=== PATIENT | female | born 1940 | race Caucasian/White ===

== ENCOUNTER → 2016-04-15 | Outpatient (CLI) | payer MEDICARE, BC ==
[~2016-04-15] MED LIST: ATIVAN 0.5MG0.5 MG PO; FEOSOL325 MG PO; HYDROCHLOROTH12.5 MG PO; MIRALAX17 GM PO; REMERON15 M2 PO; TYLENOL325 MG PO; VASOTEC5 MG PO
== END | disposition disaster alternative care site (69) ==
LOC: GKIC 09:41
DX: R91.1 Solitary pulmonary nodule (principal); R91.8 Other nonspecific abnormal finding of lung field; D35.02 Benign neoplasm of left adrenal gland; D35.01 Benign neoplasm of right adrenal gland; R26.9 Unspecified abnormalities of gait and mobility; Z88.0 Allergy status to penicillin; Z88.2 Allergy status to sulfonamides; Z88.1 Allergy status to other antibiotic agents
CPT/HCPCS: A9552

== ENCOUNTER → 2016-04-21 | Outpatient (CLI) | payer MEDICARE, BC ==
--- NOTE | ~2016-04-21 | PUL ---
PATIENT'S NAME: GABRIELA FERNANDEZ [facility] AGE: 76 Y [address] ROOM: [place] [address] LOCATION: [facility] ADMIT DATE: 04/21/2016 Pulmonary DISCHARGE DATE: FAMILY PHYSICIAN: Tj Kohli MD ATTENDING PHYSICIAN: CHRISS MARTIN NAME OF PROCEDURE: Pulmonary Function Test DATE OF PROCEDURE: April 21, 2016 TECH: RHONDA Ryder REASON FOR EXAM: Pulmonary nodules RESULTS: 1. FVC was 2.67 liters which is 107% of predicted and normal, FEV1 was 1.92 liters which is 102% of predicted and normal, and FEV1/FVC was 72% and normal. The flow volume curve did not reveal any significant airflow limitation. After bronchodilator administration FVC increased to 2.77 liters which is a 4% increase. FEV1 increased to 1.99 liters which is a 4% increase. FEV1/FVC remained 72%. 2. DLCO was 12.7 with an adjusted DLCO of 13.2 which is 88% of predicted and normal. 3. Total lung capacity was 5.25 liters which is 120% of predicted and high, and residual volume was 2.57 liters which is 141% of predicted and high. PHYSICIAN INTERPRETATION: The patient has no airflow limitation and no significant bronchodilator response. Her diffusion capacity is normal. There is evidence of hyperinflation and air trapping. CHRISS MARTIN MD RFFrida/jose maria /[id number] dtt: 04/22/16 1133 MARIO RADU F dtd: 04/22/16 0722
== END | disposition disaster alternative care site (69) ==
LOC: GRTH 12:39
DX: R91.8 Other nonspecific abnormal finding of lung field (principal)

== ENCOUNTER → 2016-05-05 | Outpatient (CLI) | payer MEDICARE, BC ==
--- NOTE | ~2016-05-05 | ESTC ---
Cardiac Perfusion Imaging Demographics Patient Name JIM Lentz Gender Female Patient Number [id number] Race Visit Number [id number] Ethnicity Corporate ID Room Number Accession Number [id number] Height Date of 1940 Weight Age 76 year(s) BSA Referring Physician Grant MARIANO MD Interpreting Grant Yao Date of study 05/05/2016 Physician Supervising /JACQUELINEP Grant Yao NM Technologist Queta Cannon MD Ordering Physician Grant Yao Stress David Boggs MD automation engineering technician RVT Stress ECG Reading Grant Yao Nurse Miriam Sweeney Physician embedded processor Procedure Type: Nuclear Stress Test:Pharmacological, Lexiscan, Cardiolite Stress Test Procedure Start time: 05/05/2016 08:15 Indications: Pre surgical clearance. Risk Factors The patient risk factors include:former tobacco use and treated hypertension. Conclusions Summary TID (1.38). Normal perfusion. Normal EF and WM. Stress Protocols Resting ECG RSR with non specific ST-T changes. Pre-stress physical exam: Un changed. Predicted HR: 143 bpm ECG Findings No ECG changes suggestive of ischemia. Arrhythmias No rhythm abnormality. Symptoms Chest tightness. Leg heaviness. Imaging Results Applied corrections - Motion correction applied High risk findings Summed scores - LV dilatation (TID) : 1.38 - Summed stress score: 0 - Summed rest score: 2 - Summed difference score: -2 Stress ejection Ejection fraction:80 % EDV :92 ml ESV :18 ml Stroke volume :74 ml LV mass :115 gr LV size:Normal Normal LV function Imaging Protocols Rest Stress Isotope:Tc99m Sestamibi IV Isotope: Tc99m Sestamibi IV Isotope dose:10 mCi Isotope dose:29.2 mCi Date:05/05/2016 07:13 Date:05/05/2016 09:13 Technique: SPECT Technique: Gated Supine SPECT Supine Scan Time:45-60 minutes post injection Procedure Medications - Regadenoson (Lexiscan) 0.4 mg IV over 10-15 sec. I.V. 0.4 mg. Medical History Admission Medications + +------+ + +---------+ + !Name !Dosage!Times per day !Start date!Stop date!Details ! + +------+ + +---------+ + !RIGO Inhibitor (any) ! ! ! ! ! ! + +------+ + +---------+ + Admission Data Admission date: 05/05/2016 Admission Time: 06:48 Hospital Status: Outpatient. Signatures dtt: Najma Burns dtmohan: 05/05/16 0815 Physician Self Edit
== END | disposition disaster alternative care site (69) ==
LOC: GRAD 06:48
DX: R94.39 Abnormal result of other cardiovascular function study (principal)
CPT/HCPCS: A9500; J0280; J2785

== ENCOUNTER 2016-05-12 14:00 | Inpatient (IN) | payer MEDICARE, BC ==
[~2016-05-12] VITALS: Ht 157.5 cm; Wt 46.8 kg
--- NOTE | ~2016-05-12 | CON ---
PATIENT'S NAME: GABRIELA FERNANDEZ [facility] AGE: 76 Y [address] ROOM: [address] [place], [place] [address] LOCATION: GPCU ADMIT DATE: 05/17/2016 Consultation DISCHARGE DATE: FAMILY PHYSICIAN: Tj Kohli MD ATTENDING PHYSICIAN: Bob Barnes DATE OF CONSULTATION: 05/24/2016 REFERRING PHYSICIAN: Johnny Madrid MD Psychiatric Evaluation/Consultation. DATA: This is a 76-year-old female, currently admitted to [facility]. Consultation requested by Dr. Bob Barnes. DIAGNOSES: At the time of evaluation, delirium, acute hypoactive with psychotic features. RECOMMENDATIONS: After talking about the risks, benefits, side effects, the patient and who was present during the interview voiced consent, acceptance, and preference for discontinuing the current use of Zyprexa, using Risperdal 0.5 mg twice a day plus Zyprexa 5 mg at night, and discontinue also the current use of Valium and replace it for a taper of Lorazepam. I have more interaction with the Zyprexa when it comes to blood pressure, nevertheless, it is the least likely to keep the liver and delirium, so I think again the balance of recent benefits is positive. HISTORY: This nice lady ended up in the hospital recently with the surgery, and after the surgery, she is getting confused seeing things that are not there and very worried about these hallucinations. So, a psychiatric consultation was requested. I came to [facility], reviewed the electronic records, the paper records, talked to the nurse for collateral information and with the patient in the presence of her . As mentioned before, she is very cooperative. There was a concern because she is drinking frequently. Nevertheless, she said that she only drinks one glass of scotch with water 3 or 4 times a week, but never goes more than one drink a day and she says that it is not strictly every single day. She has never had previous issues with withdrawal. Has never been in detox or rehab and concurs with this idea. The patient has never seen a psychiatrist before. Never had issues with depression, anxiety, psychosis, april and hypomania, obsession or compulsion, eating disorder, post-traumatization, or gambling. SUBSTANCE USE HISTORY: [facility] 76 Y [address] ROOM: [place] [address] LOCATION: GPCU ADMIT DATE: 05/17/2016 Consultation DISCHARGE DATE: FAMILY PHYSICIAN: Tj Kohli MD ATTENDING PHYSICIAN: Bbo Barnes As mentioned before, she is a smoker, but not a heavy drinker, and not a drug user. PAST PSYCHIATRIC HISTORY: Never been in a psychiatric facility. Never been suicidal. MEDICAL HISTORY: Per history and physical. PERSONAL HISTORY: She lives with her . No legal problems. No history of being in the . HISTORY OF ABUSE: Noncontributory. The patient has never been abused physically, sexually, or psychologically. FAMILY HISTORY: Noncontributory. MENTAL STATUS EXAMINATION: This is a lady, cooperative, good hygiene, good eye contact. No psychomotor agitation or retardation. Speech is normal in motor and production. Mood is labile. Affect is labile. Thought content is relevant. The patient is denying suicidal ideation endorsing visual hallucination. No auditory hallucination. No delusional thoughts. Thought was coherent and congruent. No loosening of association. Insight and judgment seem to be limited. Memory is somewhat deficient just in the very short term, but before the start of the delirium, the memory was considered to be good. Level of alertness has changes because of moments of confusion, and intelligence is average. STRENGTHS: Intelligence. BARRIERS: Physical health. HAMMAD YUSUF MD HG/modl PATIENT'S NAME: [facility] A[facility]: 76 Y [address] ROOM: [place] [address] LOCATION: GPCU ADMIT DATE: 05/17/2016 Consultation DISCHARGE DATE: FAMILY PHYSICIAN: Tj Kohli MD ATTENDING PHYSICIAN: Bob Barnes /[id number] d: 05/24/16 1503 t: 05/25/16 0945, CONSULTATION REPORT
--- NOTE | ~2016-05-12 | LTR ---
PATIENT'S NAME: LAURA FERNANDEZ [facility] AGE: 76 Y [address] ROOM: [address] [place] [id number] LOCATION: GPCU ADMIT DATE: 05/17/2016 Letter DISCHARGE DATE: 06/03/2016 FAMILY PHYSICIAN: Tj Kohli MD ATTENDING PHYSICIAN: Bob Barnes June 03, 2016 Re: LAURA FERNANDEZ BILL To [facility] Oncology: Laura Fernandez was hospitalized on Dr. Rao Barnes's Thoracic Surgery Service on 05/17/2016. On that day, Dr. Barnes performed a mediastinoscopy with biopsy of 4R, 4L, and #7 station lymph nodes. He performed a right thoracotomy with wedge resection of right upper lobe, wedge resection of right lower lobe, and right upper lobectomy with thoracic lymphadenectomy. The pathologist identified a 2 cm mass in the upper lobe of the right lung section. This was a moderately differentiated adenocarcinoma. No pleural extension or lymphovascular invasion was noted. They also noted the presence of a 0.3 cm moderately differentiated adenocarcinoma in the wedge resection of the lower lobe of the right lung. The patient had 4R lymph nodes, 8R lymph nodes, 9R nodes, 10R lymph nodes, 11R lymph nodes, and 12R lymph nodes. No lymph nodes were involved out of the 13 lymph nodes submitted. The patient did undergo sampling of 3 N2 lymph node stations as recommended. The patient was classified as clinical stage IIIA disease. This presumed the lesion in the lower lobe of the right lung was a metastasis from the lesion in the upper lobe of the right lung. It is possible the patient had 2 separate primaries. All other things being equal, if the patient is staged as stage IIIA disease, that is moderately differentiated, their prospects for cure with this surgery are around 30% to 40%. Cisplatin containing regimens, 4 cycles given over 12 weeks, can improve cure rates by around 12%. Mrs. Fernandez's course was complicated with delirium and she was just discharged on the 16th postoperative day. The patient will see Dr. Jeter in his [facility] to weigh the pros and cons of surveillance alone versus adjuvant chemotherapy. Johnny Madrid MD PATIENT'S NAME: LAURA FERNANDEZ [facility] AGE: 76 Y [address] ROOM: [address] [place] [id number] LOCATION: GPCU ADMIT DATE: 05/17/2016 Letter DISCHARGE DATE: 06/03/2016 FAMILY PHYSICIAN: Tj Kohli MD ATTENDING PHYSICIAN: Bob Barnes/ally /[id number] CC: DO Antonio Root MD Ronald J Sheppard, MD
--- NOTE | ~2016-05-12 | DS ---
PATIENT'S NAME: GABRIELA FERNANDEZ [facility] AGE: 76 Y [address] ROOM: [address] [place], [place] [address] LOCATION: GPCU ADMIT DATE: 05/17/2016 Discharge Summary DISCHARGE DATE: 06/03/2016 FAMILY PHYSICIAN: Tj Kohli MD ATTENDING PHYSICIAN: Bob Alexandra HISTORY OF PRESENT ILLNESS: The patient is a 76-year-old, white female with a known right upper lobe mass, PET positive as well as a right lower lobe mass which is not PET positive and mediastinal adenopathy. She was seen in consultation by Dr. Alexandra as referred by Dr. Jeter. On 05/17/2016, the patient presented to the operative suite for a mediastinoscopy with biopsy of 4L and #7 station lymph nodes. Also performed was a right thoracoscopy with wedge resection of the right upper lobe, wedge resection of the right lower lobe, and right upper lobectomy with thoracic lymphadenectomy. The patient tolerated the surgery without complication. Chest tube was placed at the time of this surgical procedure. The patient was transferred to the progressive care floor on 4 weeks recuperation. Early on postoperatively, we did note that the patient was suffering from acute postoperative delirium. We did attempt to manage this with medication in time. The patient also noted to be anemic and we began Epogen and p.o. iron. Chest tube was monitored. She did have an air leak from the onset. The fluid quantities were monitored. A couple days postop, we did have to call Psychiatry to assist with patient's delirium, given the gravity of the delirium. We did suspect a component of alcohol withdrawal. Medications were adjusted and new medications were instituted. The patient's pathology returned identifying a 2 cm mass in the upper lobe of the right lung section. This was indicative of moderately differentiated adenocarcinoma with no pleural extension or lymphovascular invasion. Also noted was a 0.3 cm moderately differentiated adenocarcinoma in the wedge resection of the lower lobe of the right lung. Lymph biopsies 4R, 8R, 9R, 10R, 11R, and 12R nodes revealed no metastatic adenocarcinoma. A total of 13 lymph nodes were submitted with no findings. The patient was classified as a clinical stage IIIA. Dr. Madrid followed the patient while hospitalized. The patient will see Dr. Jeter for outpatient therapy, likely consisting of cisplatin-containing regimes. The patient did continue to have an air leak to her chest tube. She had poor p.o. intake secondary to her delirium. She also had bouts with hyponatremia for which she did have to receive saline infusions. She did have a positive UA and was started on Cipro. We did have to go ahead and place a Dobbhoff and started Jevity. This did not last long as the patient did pull out the Dobbhoff shortly thereafter. We did go ahead and order a second psychiatric consult. Again, medications were adjusted and new treatment therapy began. The patient's hospitalization was prolonged secondary to the delirium. We did PATIENT'S NAME: GABRIELA FERNANDEZ [facility] AGE: 76 Y [address] ROOM: [place] [address] LOCATION: GPCU ADMIT DATE: 05/17/2016 Discharge Summary DISCHARGE DATE: 06/03/2016 FAMILY PHYSICIAN: Tj Kohli MD ATTENDING PHYSICIAN: Bob Alexandra have a decreased in the air leak and eventually no further air leak for which a chest tube was discontinued. The patient's mentation did improve. We did work with the patient and her with regard to discharge plan, given her mentation and debilitation following the surgery. The patient and her were quite adamant that they did not want any skilled care. They did desire to go home. We did finally get them talked into allowing Home Health Care nurses come and set up medications and provide PT and OT to them. The patient was deemed medically stable and again her mentation cleared significantly. By 06/03/2016, the patient was found stable to discharge to home. DISCHARGE ORDERS: Include a diet with no restrictions. Activity levels which require no pulling, pushing, or lifting greater than 10 pounds with the right upper extremity until 06/28. The patient may shower. She should work with pulmonary rehab for reconditioning once her home health care services are discontinued. She will follow up with Dr. Kohli in 3 days. She is to follow up with Dr. Alexandra in 2 weeks. She is to see Dr. Jeter at her scheduled time in 06/10. We will also ask Home health care nurses to draw a renal panel on 06/06/2016 and fax the findings to our office. DISCHARGE MEDICATIONS: Include: 1. Enalapril 5 mg twice a day. 2. Hydrochlorothiazide 6.25 mg daily. 3. Ferrous sulfate 325 mg twice a day. 4. Ativan 0.25 mg twice a day. 5. Remeron 7.5 mg at bedtime. 6. MiraLAX 17 g daily. 7. Tylenol 650 mg q.4 hours p.r.n. The patient has been verbalized understanding of the discharge orders. The patient was discharged home with home health care services. RADHA ECHOLS APRN FOR BOB ALEXANDRA DO DLQ/modl /[id number] d: 06/17/16 0652 t: 06/17/16 1140, DISCHARGE SUMMARY
--- NOTE | ~2016-05-12 | CON ---
PATIENT'S NAME: LAURA FERNANDEZ [facility] AGE: 76 Y [address] ROOM: [address] [place], [place] [address] LOCATION: GPCU ADMIT DATE: 05/17/2016 Consultation DISCHARGE DATE: FAMILY PHYSICIAN: Tj Kohli MD ATTENDING PHYSICIAN: Bob Barnes DATE OF CONSULTATION: 05/28/2016 REFERRING PHYSICIAN: Johnny Madrid MD HISTORY OF PRESENT ILLNESS: The patient was evaluated, discussed with the treatment team. This is a followup psych consult. The patient was initially evaluated by Dr. Grande on 05/24/2012. Other medical issues are evaluated. Status post resection from stage III lung cancer. Psych input was obtained for concerns around her delirium and also having psychotic symptomatology. It was revealed that the patient was consuming scotch at home, and the presentation explained by acute alcohol withdrawal at that time. The medications have been initiated by Dr. Grande. Started on Ativan, Risperdal, and Zyprexa. However, at this time, it seems like the patient is demonstrating excessive sedation on the combination, nonverbal, and extremely sedated for the last couple of days, and psych input is sought for medication adjustment. The patient was evaluated in her room. Also, was present. Having one of the best days so far during this hospital stay. Alert and awake. Orientation was definitely better, but still not quite there. Currently, understands questions. Gave vague responses after getting her thoughts together. Could tell me that she was in the hospital, name is [facility], and approximately able to tell me the date as well. The was able to provide the information. Laura did acknowledge that she likes to drink scotch and estimated that she drinks 1 to 2 shots per night of "[employer] [place]." , on the other hand, thought that there were days that she did not consume. Per the nursing staff, seems to be coming around. Still confused. Not the most alert, but overall cooperative, calm, and definitely regaining her cognition. SOCIAL HISTORY: The couple lives in [place], [place]. She is a retired teacher. They have been for 57 years and have 3 children. Originally from the [facility]. States that she was born and raised in [place]. MENTAL STATUS EXAMINATION: Thin built, frail. Resting in her recliner. Pleasant. Humorous at times as well, joked about not wanting to see a psychiatrist. Able to understand PATIENT'S NAME: LAURA FERNANDEZ [facility] AGE: 76 Y [address] ROOM: [address] [place], [place] [address] [facility] AD[facility] DATE: 05/17/2016 Consultation DISCHARGE DATE: FAMILY PHYSICIAN: Tj Kohli MD ATTENDING PHYSICIAN: Bob Barnes questions. Response latency was definitely increased. It took a while for her to process during the interview itself, was doing a lot better toward the end. Told me this is May 2016 and thought the day was Monday. Able to tell me with some prompting that this was [facility]. Also, broadly told me about the medical issues. Talked about the scotch, the brand, and the frequency, etc. Denies any auditory or visual hallucinations. At this time, feels better, but does talk about physically being uncomfortable and also being "down in the dumps." Denies any suicidal ideations. Understands the prognosis, but remains onboard and fairly hopeful about the long-term prospect. Fairly realistic at this time. DIAGNOSES: 1. Acute delirium, resolving. Etiology multiple. 2. Status post resection (lung cancer). 3. Mood disorder, other specified. ASSESSMENT AND PLAN: At this time, we will start taper of her medications. We will discontinue the Zyprexa altogether. Cut back the Risperdal to 0.25 mg b.i.d. for 2 days, can be further tapered down to 0.25 mg at bedtime and completely discontinued upon time of discharge. Ativan will be cut back to 0.25 mg b.i.d. We will keep her on the same dosage unless that too seems too sedating for her. We will initiate on Remeron 7.5 mg at bedtime mainly to help her sleep during the night and also hopefully to promote appetite. Please call with any specific concerns. MD WAQAS COCHRAN/ally /[id number] d: 05/28/16 1148 t: 05/30/16 1227, CONSULTATION REPORT
--- NOTE | ~2016-05-12 | OR ---
PATIENT'S NAME: GABRIELA FERNANDEZ [facility] AGE: 76 Y [address] ROOM: [place] [address] [facility] ADMIT DATE: 05/17/2016 OR/Procedure Report DISCHARGE DATE: FAMILY PHYSICIAN: Tj Kohli MD ATTENDING PHYSICIAN: Bob Barnes SURGEON: Bob Barnes DO DRAMATIC AGENT: DATE OF PROCEDURE: 05/17/2016 PREOPERATIVE DIAGNOSES: 1. Mediastinal adenopathy. 2. Right upper lobe mass, PET positive. 3. Right lower lobe mass, not PET positive. POSTOPERATIVE DIAGNOSES: 1. Mediastinal adenopathy. 2. Right upper lobe mass, PET positive. 3. Right lower lobe mass, not PET positive. 4. Frozen section indicating right upper lobe mass as nix-sotit-ibed carcinoma, possibly adenocarcinoma. PROCEDURE: 1. Mediastinoscopy with biopsy of 4R, 4L, and #7 station lymph nodes. 2. Right thoracotomy with wedge resection of right upper lobe, wedge resection of right lower lobe, and right upper lobectomy with thoracic lymphadenectomy. REFERRING PHYSICIANS: 1. Dr. Montelongo. 2. Dr. Jeter. 3. Dr. Paige. BRIEF HISTORY: Ms. Fernandez is a 76-year-old white female with the above-noted diagnosis. She has been brought to the operative suite today after informed consent was obtained for her procedure. We began with the mediastinoscopy. She had been previously intubated by the Department of Anesthesiology. A 2.5 cm curvilinear incision was made approximately 1 fingerbreadth above the suprasternal notch. Dissection was carried out sharply and with electrocautery through the platysma. We identified the strap muscles and these in the midline. A small anterior jugular vein was clipped and divided. Dissection was carried out to the level of the trachea. The anterior mediastinum was entered bluntly, and then the mediastinoscope was advanced along the level of the trachea. We identified 4L, 4R, and #7 lymph nodes. The 4R lymph node was biopsied and sent for frozen and permanent sections. We performed the similar procedure at the #7 lymph node station and PATIENT'S NAME: GABRIELA FERNANDEZ [facility] AGE: 76 Y [address] ROOM: [place] [id number] [facility] ADMIT DATE: 05/17/2016 OR/Procedure Report DISCHARGE DATE: FAMILY PHYSICIAN: Tj Kohli MD ATTENDING PHYSICIAN: Bob Barnes the 4L lymph node station. Each of these came back as negative for malignancy. The electrocautery used for hemostasis. The mediastinoscope was withdrawn. Strap muscles were approximated with a single 2-0 Vicryl. The platysma was then closed with a 2-0 Vicryl and the skin with 4-0 Monocryl. Anesthesia then exchanged her single-lumen endotracheal tube for a double- lumen endotracheal tube and a central line was placed. We rolled her into a lateral decubitus position for a right thoracotomy. A thoracotomy incision was made approximately 2 fingerbreadths below the scapular tip. We entered in the fourth intercostal space. The intercostal incision was completed with electrocautery. Tuffier retractor was placed, and the intercostal incision was extended anteriorly and posteriorly. The lung was nicely decompressed. The upper lobe mass was easily identifiable and with a 75 BETHANIE stapling device, we divided the upper lobe mass and sent it in for frozen section. This did come back as [id number] carcinoma, likely adenocarcinoma. There was a small palpable mass in the left upper lobe. This was also wedged and sent for permanent section. We then performed a right upper lobectomy. The pleural attachments were freed at the hilum, and the fissure was entered identifying the right upper lobe arterial structures and with an endovascular stapling device, we divided the arterial structures to the upper lobe. We then divided the venous drainage to the upper lobe and then divided the remainder of the fissure with stapling device and then divided the bronchus. Specimen was handed off. The #10, #11, and #12 lymph nodes were resected. As noted above, station 4 and station 7 lymph nodes were sent via the mediastinoscopy, 8 and 9 lymph nodes were identified and then sent as well. Infrapulmonary ligament was divided with electrocautery. Two chest tubes were placed, each of 24- Georgian, anterior and posterior to the hilum. Inflation to the lung was given under irrigant and without evidence of bronchial stump leak. The irrigant was removed. The intercostal incision was closed with 3 interrupted figure-of- eight #1 Ethibond. Muscular layer was closed with running 0 Vicryl, fascia with 2-0 Vicryl, and skin with 4-0 Monocryl. The patient tolerated the procedure well, was extubated, and transferred to the recovery room in stable condition. DO DREAD CARR/ally /[id number] d: 05/17/169 t: 05/18/16 1044, OPERATIVE SUMMARY
[~2016-05-12 14:00] MED LIST changes: -ATIVAN 0.5MG0.5 MG PO; -FEOSOL325 MG PO; -MIRALAX17 GM PO; -REMERON15 M2 PO; -TYLENOL325 MG PO
[2016-05-17 07:15] LABS: BASOPHIL # 0.1 K/uL (0.0-0.2); BASOPHIL % 0.8 %; EOSINOPHIL # 0.1 K/uL (0.0-0.5); HEMOGLOBIN 12.8 g/dL (10.0-15.0); IMMATURE GRANULOCYTE % 0.5 %; LYMPHOCYTE # 1.7 K/uL (0.8-4.0); LYMPHOCYTE % 28.1 %; MCH 30.7 pg (27.0-34.0); MCHC 32.8 gm/dL (32.0-36.5); MCV 93.5 fl (83.0-98.0); MONOCYTE # 0.7 K/uL (0.0-1.0); MPV 9.9 fl (9.4-12.4); NEUTROPHIL # (ANC) 3.5 K/uL (1.8-7.8); NEUTROPHIL % 58.6 %; NRBC % 0 /100WBC (0-0.00); PLATELET COUNT 233 K/uL (150-450); RBC 4.17 M/uL (3.50-5.50); RDW-CV 13.2 % (11.9-14.6)
[2016-05-17 07:28] LABS: ALBUMIN 4.4 gm/dL (3.5-5.0); ANION GAP 10.4 (10.0-19.0); BLOOD UREA NITROGEN 13 mg/dL (6-24); CALCIUM 9.2 mg/dL (8.5-10.5); CHLORIDE 103 mMol/L (96-110); CO2 31 mMol/L (22-32); CREATININE 0.7 mg/dL (0.5-1.1); ESTIMATED GFR (MDRD EQUATION) > 60; PHOSPHORUS 3.4 mg/dL (2.5-4.9); POTASSIUM 4.4 mMol/L (3.7-5.1); SODIUM 140 mMol/L (135-145)
[2016-05-17 10:01] LABS: BILIRUBIN URINE NEGATIVE (NEGATIVE); BLOOD URINE 10 /UL (NEGATIVE); COLOR URINE YELLOW (YELLOW); GLUCOSE URINE NEGATIVE (NEGATIVE); KETONE URINE NEGATIVE (NEGATIVE); LEUKOCYTES URINE NEGATIVE /UL (NEGATIVE); NITRITE URINE NEGATIVE (NEGATIVE); PH URINE 6.5 (4.0-8.0); PROTEIN URINE NEGATIVE (NEGATIVE); UROBILINOGEN URINE NORMAL (NORMAL)
[2016-05-17 10:02] LABS: TURBIDITY URINE CLEAR (CLEAR)
[2016-05-17 10:17] LABS: RBC URINE 0-2 #/HPF (NEGATIVE)
[2016-05-17 10:18] LABS: WBC URINE 0-2 #/HPF (NEGATIVE)
[2016-05-17 10:19] LABS: BACTERIA URINE RARE (NEGATIVE); EPITHELIAL URINE 0-2 #/HPF (NEGATIVE)
[2016-05-17 10:20] LABS: MUCUS URINE 2+ (NEGATIVE)
--- NOTE | 2016-05-17 19:08 | NUR ---
Significant Event: SLEEPY BUT AROUSES EASILY. ORIENTED X3. RIGHT CHEST TUBES X2 INTO ONE CANISTER TO -20ML WALL SUCTION. AIR LEAK PRESENT, INTERMITTENT BUBBLING NOTED. SMALL AMOUNT OF SHADOW DRAINAGE TO CT SITE DRESSING, MARKED UPON ARRIVAL TO FLOOR. LUNGS COARSE, WORSE TO RIGHT SIDE. WEANED TO 0.5L NC, DE-SATS WHEN SLEEPING ON ROOM AIR. RIGHT IJ DUAL LUMEN CENTRAL LINE, D5 1/2 NS @ 40 ML/HR INFUSING. EPIDURAL INTACT, SMALL AMOUNT OF BLOODY DRAINAGE TO DRESSING, CONTINUES ON FENTANYL/ROPIVACAINE @ 3 ML/HR WITH 1 ML BOLUS/30 MINUTE LOCKOUT. PAIN TOLERABLE, 4/10 UPON ARRIVAL TO FLOOR. RE-EDUCATED PATIENT ON GAMING FLOOR SUPERVISOR AND ENCOURAGE HER TO PUSH BUTTON FOR PAIN. PAIN CURRENTLY A 2/10. RIGHT ARTERIAL LINE INTACT, TRANPARENT DRESSING D/I. SBP 110'S-130'S. BABB PATENT. REFUSES SIPS OF WATER, MOUTH SWABBED. VOICE HOARSE. MEDIAL NECK INCISION SITE COVERED WITH GAUZE & TRANSPARENT, C/D/I. Follow up: CONTINUE TO MONITOR CLOSELY.
--- NOTE | 2016-05-18 04:32 | NUR ---
SIGNIFICANT EVENT: A/O X 3. EPIDURAL IN PLACE DRESSING IS C/D/I PAIN CONTROLED WELL. FLOEY INTACT WILL MARGINAL OUT OF 330ML. CT HAD 440ML OUT THIS SHIFT. REPOSITIONED EVERY 2 HOURS AND NEEDED. HAS BARKY COUGH BUT STATES SHE DOES NOT FEEL SHORT OF BREATH. OXYGEN SATS IN THE HIGH 90'S ON 0.5-1LNC. RIGHT ART LINE IN PLACE.
[2016-05-18 05:55] LABS: ALBUMIN 3.4 gm/dL (3.5-5.0); ANION GAP 11.9 (10.0-19.0); CALCIUM 7.8 mg/dL (8.5-10.5); CHLORIDE 103 mMol/L (96-110); CO2 27 mMol/L (22-32); CREATININE 0.8 mg/dL (0.5-1.1); ESTIMATED GFR (MDRD EQUATION) > 60; PHOSPHORUS 3.2 mg/dL (2.5-4.9); POTASSIUM 3.9 mMol/L (3.7-5.1); SODIUM 138 mMol/L (135-145)
[2016-05-18 05:58] LABS: BLOOD UREA NITROGEN 20 mg/dL (6-24)
[2016-05-18 06:04] LABS: BASOPHIL % 0.1 %; HEMOGLOBIN 9.4 g/dL (10.0-15.0); IMMATURE GRANULOCYTE % 0.4 %; LYMPHOCYTE # 1.2 K/uL (0.8-4.0); LYMPHOCYTE % 15.8 %; MONOCYTE # 0.8 K/uL (0.0-1.0); MONOCYTE % 10.2 %; MPV 10.2 fl (9.4-12.4); NEUTROPHIL # (ANC) 5.4 K/uL (1.8-7.8); NEUTROPHIL % 73.5 %; NRBC % 0 /100WBC (0-0.00); RDW-CV 13.4 % (11.9-14.6); WBC 7.3 K/uL (4.0-11.0)
[2016-05-18 06:05] LABS: MCH 31.5 pg (27.0-34.0); MCHC 33.6 gm/dL (32.0-36.5); PLATELET COUNT 169 K/uL (150-450); RBC 2.98 M/uL (3.50-5.50)
--- NOTE | 2016-05-18 18:39 | NUR ---
Significant Event: VSS AND WEANED TO RA. AFEBRILE. EPIDURAL CONTINUES WITHOUT DIFFICULTY AND 2 TABS NORCO X2 & TORADOL 15 MG X1; PAIN HAS BEEN BETTER CONTROLLED THIS AFTERNOON. EPIDURAL WITH 12 DEMANDS AND 5 DELIVERED, TOTAL 32.65 MG. RT)ART LINE AND IJ D/C'D. BABB WITH 300 MLS UOP; GAVE 1 MG IV BUMEX AND 20 KCL THIS AFTERNOON, UOP IS PICKING UP AT THE END OF SHIFT. CT TO SUCTION WITH 290 MLS SEROSANGUINOUS DRAINAGE OUT. AMBULATES IN [place] WITH PULMONARY REHAB AND UP TO CHAIR THIS AFTERNOON. EPOGEN SUBQ GIVEN. HAS HAD GOOD PO FLUID INTAKE, BUT NO APPETITE AND REFUSED SOLIDS TODAY. REPOSITIONED Q2H. Follow up: CONTINUE PLAN OF CARE.
--- NOTE | 2016-05-19 07:16 | NUR ---
Significant Event: Patient alert and oriented with beginning of shift. Started hallucinating around midnight. SBP up to 180s-190s. 2L O2 applied. Fentanyl epidural held per Dr. Barnes orders. Zyprexa given x2. Hallucinations stopped around 0400. Patient now very confused, restless. Continuously trying to get out of bed. Yelling in room. Dr. Barnes notified. Epidural continues to be off. Chest tube continues at -20 suction with air leak. 230ml output. Hensley patent with 1000ml uop. [place] 2 tabs given x1 for pain with little relief. Follow up: Will continue to monitor respiratory status, pain, and neuro function.
--- NOTE | 2016-05-19 11:30 | NUR ---
Introduced self and role of care management to patient. She lives in [place] with her . She did walk in the [place] with therapy today. Patient does make some inconsistent statements. Will touchbase with her . Anticipate she will go home when ready for discharge. Will follow.
--- NOTE | 2016-05-19 17:54 | NUR ---
Patient a 1:1. Orientated to place and time at 0700 assessment. At 1400 patient became agitated and unorientated. Pt given valium at 1546. Called and he states that pt drinks scotch daily and smokes. 2L O2 via nasal cannula. 260 chest tube output.
--- NOTE | 2016-05-19 18:13 | NUR ---
I HAVE READ AND AGREE WIT CHARTING DONE BY Marck GIPSON STUDENT NURSE.
--- NOTE | 2016-05-20 06:37 | NUR ---
Significant Event: Patient oriented to self only. Very confused. Agitated and restless. Scheduled 5mg Zyprexa and 5mg Valium given with no effect. Patient pulled out flores catheter. Attempts to pull on chest tube. 2mg Morphine x1 PRN and 5mg Zyprexa IM x1 per Dr. Barnes orders with relief. Patient slept until 0500. Then up to bathroom with two assist. Agitation, restlessness, and confusion continues. 1:1. Bed and chair alarms at all times. Hallucinations continue on and off. 1600uop + VD x1. SBP 110s-130s. HR 80s-130s. On RA. Chest tube continues to right side at -20 suction. 260ml output this shift. Bubbling present. Dr. Barnes aware. Follow up: Will continue to monitor pain and chest tube.
--- NOTE | 2016-05-20 12:15 | NUR ---
Talked with patient and . Patient makes some confusing statements. hopes she will be able to go home when ready for discharge. Did talk to him briefly about skilled options in [place]. Will follow.
--- NOTE | 2016-05-20 16:58 | NUR ---
Patient was cooperative. Ambulated in halls 3x. Patient reported no pain. Valium given as schedule, no PRN meds needed. stated that: discharge goal is Monday.
--- NOTE | 2016-05-20 17:23 | NUR ---
I HAVE READ AND AGREE WITH CHARTING DONE BY Marck GIPSON STUDENT NURSE.
--- NOTE | 2016-05-21 04:42 | NUR ---
Significant Event: Alert to person, knows in a hospital in [place], knows month/year, denies pain, patient restless off/on, no attempts to get out of bed, cooperative with staff, patient did state that "the chan weren't in the right place and that the RNs were sideways", ambulated hallway, dressings dry/intact with old marked drainage, CT to suction with 127 ml out, bubbling at times with respirations, no crepitus noted, 1-2 assist transfers Follow up: continue plan of care
--- NOTE | 2016-05-21 17:20 | NUR ---
Significant Event: VSS AND RA. AFEBRILE. 15 MIN CHECKS. RESTED ON/OFF TODAY, MORE CALM IN THE AM AND INCREASED RESTLESSNESS THIS AFTERNOON, PULLING AT GOWN/TELE AND TRYING TO GET OUT OF CHAIR; SCHEDULED VALIUM GIVEN. ALERT TO SELF AND PLACE, USUALLY DISORIENTED TO TIME AND FORGETFUL NEEDING FREQUENT REMINDERS AT TIMES. 1 TAB NORCO AT [address] SITE PAIN. CT TO SUCTION WITH 130 MLS OUT. VOIDS WITH ADEQUATE UOP. MOM AND PRUNE JUICE GIVEN FOR NO BM SINCE SURGERY, HAD A SMALL BM. APPETITE STILL POOR, DOES TAKE IN SMALL AMOUNTS OF FOOD AND GOOD FLUID INTAKE WITH SUPPLEMENTS AND WATER. AMBULATES IN [place] 2 LAPS X2. Follow up: CONTINUE PLAN OF CARE.
--- NOTE | 2016-05-22 04:27 | NUR ---
Significant Event: A/O x3 at beginning of shift, VSS on RA, patient became increasingly restless throughout night, trying to get out of bed, having spatial hallucinations thinking she was upside down, patient began seeing mice in her bed, continues to think she is at home or needs to drive and pick pack worker her , ambulated in [place] with 1assistAmelia x1 for CT site pain, cooperative and diverts easily, CT to suction had 150 ml out, patient did not start sleeping until about 0400 Follow up: continue with 15 min. checks
--- NOTE | 2016-05-22 10:02 | NUR ---
A-SCREENED D/T LOS S/P R)THORACOTOMY FOR NON-SMALL CELL CARCINOMA. CT TO SUCTION NO BM SINCE SURGERY; MOM AND PRUNE JUICE GIVEN YESTERDAY WITH (+)BM SPATIAL HALLUCINATIONS, DISORIENTED TO PLACE HT: 62 IN. CBW: 51.8 KG (STANDING SCALE); ADMIT WT 48.8 KG (BED SCALE) BMI: 20.7 LABS: NA 138, K+ 3.9, GLU 3.9, BUN 20, OUTREACH NURSE 0.8, ALB 3.4 MEDS: VIT B1, FOLIC ACID, MVI, ZYPREXA, VALIUM, FEOSOL, PRN BOWEL MEDS, REGLAN, ZOFRAN, NORCO, MORPHINE, NARCAN DIET RX: REGULAR. PO INTAKE HAS BEEN POOR; REFUSALS-BITES/SIPS. NURSING HAS BEEN OFFERING SUPPLEMENTS; PT HAS TAKEN THOSE WELL. EST NUTR NEEDS: 0658-8344 KCALS (25-30 KCALS/KG) 52-57 GM PROTEIN (1.0-1.1 GM/KG) 1 ML FLUID/KCAL D-AT NUTRITION RISK W/INADEQUATE NUTRIENT INTAKE R/T POOR APPETITE AEB INTAK RECORDS, CHART REVIEW I-ADD ENSURE ENLIVE TID W/MEALS M/E-GOAL: PO INTAKE >/=50% BY NEXT F/U 1)F/U PO INTAKE, SUPPLEMENT, AND POC IN 3-5 DAYS 2)ASSIST NEEDED
--- NOTE | 2016-05-22 16:26 | NUR ---
Significant Event: VSS AND RA. AFEBRILE. 1 TAB NORCO AT 1530 FOR RT)CT SITE PAIN, WITH RELIEF. CT REMAINS TO SX WITH 80 MLS SEROSANGUINOUS DRAINAGE OUT. MORE RESTLESS AND IMPULSIVE TODAY, 15 MIN CHECKS CONTINUE. ORIENTED TO PERSON & PLACE, DISORIENTED TO TIME AND NEEDS FREQUENT REMINDERS OF WHY SHE IS HERE. HAD ONE EPISODE OF SPATIAL DISORIENTATION/[place] MOVING. SLEPT AT SHORT INTERVALS FOR A TOTAL OF AROUND 3 HOURS THIS SHIFT. VALIUM DOSE INCREASED TO QID. VOIDS WITH ADEQUATE UOP. UP AND DOWN TO RECLINER A FEW TIMES AND AMBULATES [place] X2 WITH 1A/GB/AND WALKER. Follow up: CONTINUE PLAN OF CARE; XRAY IN THE AM, LABS
--- NOTE | 2016-05-23 04:53 | NUR ---
Significant Event: Alert to self, remembers she is in hospital but needs frequent reorienting, less restless as previous night, had one episode of hallucinations, patient thought she was upside down and that there was a hole in the ground surrounding her bed, ambulated [place] x3, Hus[place] x1 for CT site pain, CT to suction with 120 ml out, dressings dry/intact, 1 assist, cooperative with cares Follow up: chest xray this am
[2016-05-23 08:18] LABS: BASOPHIL % 0.4 %; EOSINOPHIL # 0.1 K/uL (0.0-0.5); EOSINOPHIL % 0.9 %; HEMOGLOBIN 10.8 g/dL (10.0-15.0); IMMATURE GRANULOCYTE # 0.1 K/uL (0.0-0.3); IMMATURE GRANULOCYTE % 1.1 %; LYMPHOCYTE % 12.9 %; MCH 30.6 pg (27.0-34.0); MCHC 32.7 gm/dL (32.0-36.5); MCV 93.5 fl (83.0-98.0); MONOCYTE # 1.3 K/uL (0.0-1.0); MONOCYTE % 15.9 %; MPV 9.5 fl (9.4-12.4); NEUTROPHIL # (ANC) 5.6 K/uL (1.8-7.8); NEUTROPHIL % 68.8 %; NRBC % 0 /100WBC (0-0.00); PLATELET COUNT 275 K/uL (150-450); RBC 3.53 M/uL (3.50-5.50); RDW-CV 13.9 % (11.9-14.6); WBC 8.1 K/uL (4.0-11.0)
[2016-05-23 08:30] LABS: ALBUMIN 3.1 gm/dL (3.5-5.0); ALK PHOS 141 IU/L (33-138); ALT 46 IU/L (12-78); ANION GAP 12.2 (10.0-19.0); AST 45 IU/L (10-40); BLOOD UREA NITROGEN 15 mg/dL (6-24); CALCIUM 8.6 mg/dL (8.5-10.5); CHLORIDE 91 mMol/L (96-110); CO2 31 mMol/L (22-32); CREATININE 0.6 mg/dL (0.5-1.1); ESTIMATED GFR (MDRD EQUATION) > 60; MAGNESIUM 2.3 mg/dL (1.3-2.6); POTASSIUM 4.2 mMol/L (3.7-5.1); SODIUM 130 mMol/L (135-145); TOTAL BILIRUBIN 0.6 mg/dL (0.0-1.5); TOTAL PROTEIN 6.5 g/dL (6.0-8.4)
--- NOTE | 2016-05-23 16:37 | NUR ---
Significant Event: Patient disoriented upon awaking or when she gets very tired, but otherwise alert and oriented. Often thinks there is a big hole around her she is going to fall in and that things are upside down. Impulsive and calls out instead of using call light. Alarms engaged at all times. Up with 1A, walker, and a gaitbelt. Takes frequent cues on how to use the walker appropriately. VSS on RA. Started Hydrocholorthiazide today and gave 1 dose IV bumex to help with low sodium (130). [address] to suction. Up in halls ambulating. Denies any need for pain medication. Very poor appetite, although she states her favorite thing to do is eat. Continued encouragement. RFA PIV SL. Follow up: Continue as per plan of care. Monitor neuro status and respiratory status.
--- NOTE | 2016-05-24 04:33 | NUR ---
Significant Event: disoriented to time/place, more confused upon waking, VSS on RA, 1 tab [place] given at 1940 for back pain, patient refused supper, slept 4 hours and then ambulated the hallway, patient has slept since midnight with only waking up for assessment, CT to suction with 130 ml out, bubbling intermittently, dressing dry/intact Follow up: continue plan of care
--- NOTE | 2016-05-24 16:27 | NUR ---
Significant Event: Patient disoriented to time/place. More forgetul, impulsive, and confused today than yesterday. Psych consult and medications adjusted. Did not think symptoms were due to detox, and more due to delirium. Up with 1A, gaitbelt, and walker. Shuffling gait. SBP 90-100's this A.M., but about 1430 at SBP 70-80's. Gave 500cc bolus and now in the 90's again. 120 ml out of R)chest tube. New PIV to L)hand. Gave tylenol this A.M. for pain. Follow up: Continue as per plan of care. Monitor neuro status and pain and CT.
[2016-05-25 06:15] LABS: ALBUMIN 2.8 gm/dL (3.5-5.0); ANION GAP 14.8 (10.0-19.0); BLOOD UREA NITROGEN 19 mg/dL (6-24); CALCIUM 8.6 mg/dL (8.5-10.5); CHLORIDE 89 mMol/L (96-110); CO2 27 mMol/L (22-32); CREATININE 0.5 mg/dL (0.5-1.1); ESTIMATED GFR (MDRD EQUATION) > 60; PHOSPHORUS 2.8 mg/dL (2.5-4.9); POTASSIUM 3.8 mMol/L (3.7-5.1); SODIUM 127 mMol/L (135-145)
--- NOTE | 2016-05-25 13:09 | NUR ---
A - NUT F/U. DISORIENTED/FORGETFUL/CONFUSED - DELIRIUM. DECREASED APPETITE, MIN INTAKE - RECEIVED ASSISTANCE AT LUNCH TODAY. LABS: NA 127, GLU 107, ALB 2.8, ALK PHOS 141, AST 45. MEDS: ZYPREXA, RISPERDAL, FOLIC ACID, THIAMINE, FEOSOL, BOWEL/NAUSEA, REGLAN, PEPCID, HYDRODIURIL. DIET: REG. INTAKE: REF-BITES. ENSURE TID NEEDS: 4981-4585 KCAL, 52-57 G PRO D - INADEQUATE NUTRIENT INTAKE R/T DECREASED APPETITE, MENTAL STATUS AEB INTAKE RECORD, DELIRIUM. I - GOAL FOR INCREASED NUTRIENT INTAKE WILL CONTINUE ENSURE TID CURRENTLY UNABLE TO MEET NEEDS ORALLY - MAY BENEFIT FROM ENTERAL NUTRITION IF INTAKE DOES NOT IMPROVE. M/E - WILL MONITOR POC, INTAKE F/U IN 2-4 DAYS.
--- NOTE | 2016-05-25 13:12 | NUR ---
ORAL INTAKE MINIMAL. IF ORAL INTAKE DOES NOT IMPROVE PT MAY BENEFIT FROM ENTERAL NUTRITION.
--- NOTE | 2016-05-25 16:42 | NUR ---
Significant Event:Up in chair with PT help. Confused and makes inappropriate comments and attempts to crawl out of bed. here off/on. Refused breakfast and ate bites for lunch. Likes diet coke. LS clear and diminished on RA Sats >90%. Chest tube intact with slight fluctuation noted. 130 ml serosanguinous out. Drsg intact with old drng. Incision to right side and neck cdi. SL in Left hand. Abd soft hypoactive bowel tones. Miralex and Dulcolax suppository given. No results. 1-2 assist with transfers. Tylenol at 0955 for chest tube site pain. Bumex 2mg IV given.
[2016-05-26 03:30] LABS: BASOPHIL % 0.1 %; HEMATOCRIT 31.8 % (33.0-46.0); HEMOGLOBIN 10.7 g/dL (10.0-15.0); IMMATURE GRANULOCYTE # 0.2 K/uL (0.0-0.3); IMMATURE GRANULOCYTE % 1.6 %; LYMPHOCYTE # 0.6 K/uL (0.8-4.0); LYMPHOCYTE % 5.3 %; MCH 30.2 pg (27.0-34.0); MCHC 33.6 gm/dL (32.0-36.5); MCV 89.8 fl (83.0-98.0); MONOCYTE # 0.8 K/uL (0.0-1.0); MONOCYTE % 6.9 %; MPV 9.4 fl (9.4-12.4); NEUTROPHIL # (ANC) 9.5 K/uL (1.8-7.8); NEUTROPHIL % 86.1 %; NRBC % 0 /100WBC (0-0.00); RBC 3.54 M/uL (3.50-5.50); RDW-CV 13.2 % (11.9-14.6)
[2016-05-26 03:35] LABS: PLATELET COUNT 151 K/uL (150-450)
[2016-05-26 03:53] LABS: ANION GAP 17.5 (10.0-19.0); BLOOD UREA NITROGEN 19 mg/dL (6-24); CHLORIDE 85 mMol/L (96-110); CO2 25 mMol/L (22-32); CREATININE 0.6 mg/dL (0.5-1.1); ESTIMATED GFR (MDRD EQUATION) > 60; PHOSPHORUS 3.5 mg/dL (2.5-4.9); POTASSIUM 3.5 mMol/L (3.7-5.1); SODIUM 124 mMol/L (135-145)
--- NOTE | 2016-05-26 04:58 | NUR ---
Significant Event: A/o to person/time. Impulsive, restless, anxious, confused comments. VSS. RA. Lungs clear/dim. R) CT drained 40 ml serosang drainage. Active bowel sounds. No BM. Poor appetite, poor oral intake. 1200 ml dark yellow urine out. Very limited movement. 2A. Shuffling, could not make it very far even short distances. Denie pain. Follow up: Cont
--- NOTE | 2016-05-26 16:54 | NUR ---
Significant Event: Oriented to person only, follows commands, more alert as day progressed, but makes many confused statements, garbled speech, many visual hallucinations. Gave Hypertonic Saline and PO Potassium. Refused meals. Hypoactive bowel sounds. Hi-low bed with alarms at all times, attempts to get out of bed. 2 assist, pivot to commode. 60 ml out from chest tube.
[2016-05-27 06:14] LABS: ALBUMIN 3.1 gm/dL (3.5-5.0); ANION GAP 13.3 (10.0-19.0); BLOOD UREA NITROGEN 23 mg/dL (6-24); CALCIUM 9.2 mg/dL (8.5-10.5); CHLORIDE 90 mMol/L (96-110); CO2 32 mMol/L (22-32); CREATININE 0.6 mg/dL (0.5-1.1); ESTIMATED GFR (MDRD EQUATION) > 60; PHOSPHORUS 2.9 mg/dL (2.5-4.9); POTASSIUM 3.3 mMol/L (3.7-5.1); SODIUM 132 mMol/L (135-145)
--- NOTE | 2016-05-27 07:28 | NUR ---
Oriented to person only. Confusion escalated as night went on. Garbled speech. Hi-low bed with alarms on at all times. Set off BA numerous times last night. 2 assist to commode. Chest tubes intact- patient tipped container over. Charge notified- decided not to replace d/t probablitiy of it being removed today. Refusing meals- only a few bited of supper eaten.
--- NOTE | 2016-05-27 12:55 | NUR ---
A - NUT F/U. A/O TO SELF. CONFUSED. REFUSING MEALS. DECREASED APPETITE. LABS: NA 132, K+ 3.3, GLU 109, ALB 3.1. MEDS: BUMEX, ZYPREXA, RISPERDAL, HYDRODIURIL, FOLIC ACID, THIAMINE, FEOSOL, BOWEL/NAUSEA, REGLAN, PEPCID. NEEDS: REG. INTAKE: REF-BITES. ENSURE TID. NEEDS: 9888-2826 KCAL, 52-57 G PRO. D - INADEQUATE NUTRIENT INTAKE R/T DECREASED APPETITE AEB INTAKE RECORD. UNABLE TO MEET NEEDS ORALLY. I - GOAL FOR INCREASED NUTRIENT INTAKE. REC JEVITY 1.5 @ 75 ML/HR x 12 HRS OVERNIGHT W/ 150 ML WATER Q6 HRS TO PROVIDE 1350 KCAL, 57 G PRO, 684 ML FREE WATER (+FLUSH). M/E - WILL MONITOR INTAKE F/U IN 3-5 DAYS.
--- NOTE | 2016-05-27 14:47 | NUR ---
Speech Tx Note: Orders received for speech consult; chart reviewed. Attempted to initiate speech evaluation x2. Pt was fatigued after OT or sleeping and unable to participate fully in evaluation. Per discussion with nursing, will attempt again over the weekend when pt may be more alert. Rocío King M.A. TAYE-QUANTITATIVE RESEARCH ANALYST
--- NOTE | 2016-05-27 19:13 | NUR ---
Patient was alert in the AM but became lethargic and sleepy throughout the day, as shift was ending pt became more alert. Dobhoff placed, waiting for xray verification. MRI of head, no significant findings. vitals stable.
--- NOTE | 2016-05-27 19:33 | NUR ---
I HAVE READ AND AGREE WITH CHARTING DONE BY Marck GIPSON STUDENT NURSE.
[2016-05-27 23:58] LABS: BILIRUBIN URINE NEGATIVE (NEGATIVE); BLOOD URINE NEGATIVE /UL (NEGATIVE); GLUCOSE URINE NEGATIVE (NEGATIVE); KETONE URINE 15 mg/dL (NEGATIVE); LEUKOCYTES URINE 25 /UL (NEGATIVE); NITRITE URINE NEGATIVE (NEGATIVE); PROTEIN URINE NEGATIVE (NEGATIVE); SPEC GRAVITY URINE 1.015 (1.003-1.035); UROBILINOGEN URINE NORMAL (NORMAL)
[2016-05-28] LABS: COLOR URINE YELLOW (YELLOW); TURBIDITY URINE CLEAR (CLEAR)
[2016-05-28 00:05] LABS: BACTERIA URINE FEW (NEGATIVE); EPITHELIAL URINE 0-2 #/HPF (NEGATIVE); RBC URINE NEGATIVE #/HPF (NEGATIVE); WBC URINE 0-2 #/HPF (NEGATIVE)
[2016-05-28 00:06] LABS: HYALINE CAST URINE 0-2 #/LPF (NEGATIVE)
--- NOTE | 2016-05-28 04:36 | NUR ---
Significant Event: PATIENT IS DISORIENTED TO TIME/PLACE AND FORGETFUL/CONFUSED. WAS ABLE TO TELL ME CURRENT PRESIDENT, TOWN, AND MONTH ON SECOND ASSESSMENT. FORGETS LIMITATIONS. FREQ TRIES TO GET OOB. BED ALARM ON AT ALL TIMES. VSS. HR 90'S. SBP 120-130'S. AFEBRILE. 02 SATS IN MID 90'S ON RA. NO C/O PAIN. LUNGS VARRIED BUT MOSTLY CLEAR/DIM TO LEFT SIDE AND SLIGHTLY COARSE WITH CRACKLES TO RIGHT SIDE. CHEST TUBE INTACT. NO CREPITUS. DRESSING C/D/I. SOME FLUCCUATIONS WITH RESPIRATIONS AND INTERMITTENT BUBBLING. UP WITH 1-2 ASSIST. BOWELS HYPOACTIVE. PATIENT PULLED NG. PHYISICAN NOTIFIED AND TOLD TO KEEP OUT AND READDRESS IN AM. TUBE FEEDING WAS NOT STARTED IN THAT PERIOD OF TIME. DRANK A PEPSI AND HAD A FEW BITES OF PUDDING. APPETITE STILL VERY POOR. VOIDS PER BEDPAN. NEEDS TOILETING SCHEDULE OTHERWISE PATIENT WILL HOLD URINE. IV TO LEFT THUMB D/C'D BY PATIENT. NEW IV TO RIGHT AC SL. BED NEEDS ZERO'D FOR ACCURATE WEIGHT. IF DOBHOFF REPLACED, MAY NEED TO HAVE MITTEN RESTRAINTS. Follow up: CONTINUE TO MONITOR AND ENCOURAGE TO EAT.
[2016-05-28 10:07] LABS: ALBUMIN 3.1 gm/dL (3.5-5.0); ANION GAP 12.1 (10.0-19.0); BLOOD UREA NITROGEN 34 mg/dL (6-24); CALCIUM 9.5 mg/dL (8.5-10.5); CHLORIDE 98 mMol/L (96-110); CO2 30 mMol/L (22-32); CREATININE 0.6 mg/dL (0.5-1.1); ESTIMATED GFR (MDRD EQUATION) > 60; PHOSPHORUS 3.4 mg/dL (2.5-4.9); POTASSIUM 4.1 mMol/L (3.7-5.1); SODIUM 136 mMol/L (135-145)
--- NOTE | 2016-05-28 16:00 | NUR ---
PATIENT CONFUSED AND UNORIENTED AT TIMES. HELD AM DOES OF ATIVAN AND RISPEDOL. HAS ALBUMIN RUNING ON RIGHT FOREARM IV. PATIENT HAD A BM TODAY, LIQUIDY AND BLACK DUE TO IRON SUPPLEMENTS. CRACKLES IN LUNGS BILAT. PATIENT ABLE TO DRINK ONE ENSURE TODAY.
--- NOTE | 2016-05-28 18:06 | NUR ---
I HAVE READ AND AGREE WITH CHARTING DONE BY Marck GIPSON STUDENT NURSE.
[2016-05-29 05:10] LABS: ALBUMIN 3.5 gm/dL (3.5-5.0); ANION GAP 11.4 (10.0-19.0); BLOOD UREA NITROGEN 34 mg/dL (6-24); CALCIUM 9.6 mg/dL (8.5-10.5); CHLORIDE 99 mMol/L (96-110); CO2 29 mMol/L (22-32); CREATININE 0.6 mg/dL (0.5-1.1); ESTIMATED GFR (MDRD EQUATION) > 60; PHOSPHORUS 2.5 mg/dL (2.5-4.9); POTASSIUM 4.4 mMol/L (3.7-5.1); SODIUM 135 mMol/L (135-145)
--- NOTE | 2016-05-29 07:10 | NUR ---
Significant Event: Patient has been alert and disoriented to time/place. Did not sleep throughout most of the night and has been very restless, impulsive, and attempting to get out of bed frequently. Towards end of the shift, she kept taking off her leads and kept asking to be put on the floor. Patient has been very difficult to reorient. Vital signs have been stable. Continues on room air. Right sided chest tube to suction with 60 mL out. Patient has denied any pain. Repositions self frequently in high-low bed. Alarms on at all times. Follow up: Continue to monitor per plan of care.
--- NOTE | 2016-05-29 18:02 | NUR ---
PATIENT HAS BEEN MORE ALERT TODAY. UP IN CHAIR TODAY AND AMBULATED IN [place] X2. STARTING TO GET MORE CONFUSED THE END OF SHIFT IS STARTING. PATIENT IS TO BE PUT TO H2O SEAL TO NIGHT AT MIDNIGHT.
[2016-05-30 03:44] LABS: ALBUMIN 3.8 gm/dL (3.5-5.0); ANION GAP 14.9 (10.0-19.0); BLOOD UREA NITROGEN 41 mg/dL (6-24); CALCIUM 9.8 mg/dL (8.5-10.5); CHLORIDE 94 mMol/L (96-110); CO2 32 mMol/L (22-32); CREATININE 0.8 mg/dL (0.5-1.1); ESTIMATED GFR (MDRD EQUATION) > 60; PHOSPHORUS 3.9 mg/dL (2.5-4.9); POTASSIUM 4.9 mMol/L (3.7-5.1); SODIUM 136 mMol/L (135-145)
--- NOTE | 2016-05-30 05:16 | NUR ---
Significant event: disoriented to person place and time. Has not slept at all throughout the night. Been up and down all night long talking to the wall. Put the chest tube to water seal at midnight. Up with 1 assist walker and gait belt.
--- NOTE | 2016-05-30 13:00 | NUR ---
A - NUT F/U. DISORIENTED. NG PLACED HOWEVER PT PULLED. ENC TO EAT. DECREASED APPETITE. LABS: GLU 118, BUN/CR 41/0.8. MEDS: RISPERDAL, CIPRO, REMERON, KCL, BUMEX, HYDRODIURIL, FOLIC ACID, THIAMINE, FEOSOL, BWOEL/NAUSEA, REGLAN, PEPCID. DIET: REG. INTAKE: REF-75% AVG ~21% ENSURE TID. D - INADEQUATE NUTRIENT INTAKE R/T DECREASED APPETITE AEB INTAKE RECORD. I - GOAL FOR INCREASED ORAL INTAKE. WILL CONTINUE ENSURE TID. WILL ADD MAGIC CUP @ L&D. PT WOULD CONTINUE TO BENEFIT FROM ENTERAL NUTRITION - JEVITY 1.5 @ 75 ML/HR x 12 HRS OVERNIGHT W/ 150 ML WATER Q6 HRS. (1350 KCAL, 57 G PRO, 684 ML FREE WATER) M/E - WILL MONITOR POC, INTAKE F/U IN 3-4 DAYS
--- NOTE | 2016-05-30 16:07 | NUR ---
Significant Event: VSS AND RA. DENIES PAIN. WORKS WITH PT/OT, AMBULATES SHORT DISTANCES WITH SHUFFLING GAIT. VOIDS WITH ADEQUATE UOP AFTER IV BUMEX, HAD A MOD BM. CT TO WATER SEAL WITH 40 MLS SEROSANGUINOUS DRAINAGE OUT. REMAINS VERY DISORIENTED AND IMPULSIVE AT TIMES, PULLING OFF GOWN AND TELEMETRY. HI/LOW BED AND EVAN AND BED ALARMS ON AT ALL TIMES. REPOSITIONED Q2H/FREQUENTLY PRN. Follow up: CONTINUE PLAN OF CARE.
--- NOTE | 2016-05-31 04:41 | NUR ---
Significant events: Pt alert, disoriented to time and place. Impulsive and calls out at times. Bed and chair alarm on at all times. SBP 80-100's this shift. 500mL fluid bolus given. Up 2PA, does not follow cues very well. CT to water seal, unremarkable output. Up to bedside commode, BM x1. Pt pulled ot 2 IV's this shift. New IV to L) forearm. No complaints of pain. Poor appetite. Slept very well this shift.
[2016-05-31 10:25] LABS: ALBUMIN 3.8 gm/dL (3.5-5.0); ANION GAP 11.7 (10.0-19.0); CALCIUM 9.7 mg/dL (8.5-10.5); CREATININE 1.2 mg/dL (0.5-1.1); PHOSPHORUS 4.5 mg/dL (2.5-4.9); POTASSIUM 4.7 mMol/L (3.7-5.1)
--- NOTE | 2016-05-31 16:25 | NUR ---
Significant Event: PATIENT MORE ALERT & AWAKE THIS AFTERNOON, STILL D/OX2. PT. GETS UP 1-2 ASSIST WITH GAIT BELT/WALKER. PT. WALKED IN [place] TODAY WITH THERAPY. GAVE TYLENOL AT 0957 FOR COMPLAINTS OF PAIN WHEN MOVING TO SIDE OF BED. PT. VOIDED X2 ON BSC. NO BM. CHEST TUBE REMOVED TODAY, DRESSING TO SITE IS C/D/I. CHEST X-RAY IN AM. PT. UP TO CHAIR MOST OF THE DAY, BATH & HAIR WASHED TODAY. ALBUMIN GIVEN TODAY. IV TO L)FA. Follow up: CONTINUE WITH POC.
--- NOTE | 2016-06-01 04:21 | NUR ---
Significant events: Pt alert, disoriented to time and place. Less impulsive this shift. Slept most of the time. Up 1PA to the commode and to bed. Tylenol at HS for soreness to CT site. Awaiting placement.
[2016-06-01 07:00] LABS: BASOPHIL % 0.2 %; EOSINOPHIL # 0.1 K/uL (0.0-0.5); EOSINOPHIL % 0.9 %; HEMATOCRIT 29.3 % (33.0-46.0); HEMOGLOBIN 9.4 g/dL (10.0-15.0); IMMATURE GRANULOCYTE # 0.4 K/uL (0.0-0.3); IMMATURE GRANULOCYTE % 4.2 %; LYMPHOCYTE # 1.6 K/uL (0.8-4.0); LYMPHOCYTE % 16.9 %; MCH 30.1 pg (27.0-34.0); MCHC 32.1 gm/dL (32.0-36.5); MCV 93.9 fl (83.0-98.0); MONOCYTE # 0.9 K/uL (0.0-1.0); MONOCYTE % 9.6 %; MPV 9.3 fl (9.4-12.4); NEUTROPHIL # (ANC) 6.4 K/uL (1.8-7.8); NEUTROPHIL % 68.2 %; NRBC % 0 /100WBC (0-0.00); PLATELET COUNT 205 K/uL (150-450); RBC 3.12 M/uL (3.50-5.50); RDW-CV 13.9 % (11.9-14.6); WBC 9.3 K/uL (4.0-11.0)
[2016-06-01 07:14] LABS: ALBUMIN 4.1 gm/dL (3.5-5.0); ANION GAP 11.8 (10.0-19.0); BLOOD UREA NITROGEN 38 mg/dL (6-24); CALCIUM 9.3 mg/dL (8.5-10.5); CHLORIDE 104 mMol/L (96-110); CO2 27 mMol/L (22-32); CREATININE 0.6 mg/dL (0.5-1.1); PHOSPHORUS 2.7 mg/dL (2.5-4.9); POTASSIUM 4.8 mMol/L (3.7-5.1); SODIUM 138 mMol/L (135-145)
[2016-06-01 07:18] LABS: ESTIMATED GFR (MDRD EQUATION) > 60
--- NOTE | 2016-06-01 16:06 | NUR ---
Talked to Sarah and Dr. Barnes earlier today and they think patient will be ready for discharge tomorrow. They would like patient to have HHC. Spoke with patient regarding HHC and she says it would be OK. She is not sure which agency to choose. Left VMM for patient's spouse regarding HHC and needing to select an agency. Will follow.
--- NOTE | 2016-06-01 16:33 | NUR ---
Significant Event: A/OX3, STILL FORGETFUL AT TIMES. VSS ON ROOM AIR. SLIV TO L)FA. NO COMPLAINTS OF PAIN. PT. GETS UP SBA WITH WALKER/GAIT BELT. HAS WALKED SEVERAL TIMES IN [place] TODAY WITH [facility]. HERE. ATE 50% OF LUNCH TODAY. VOIDS FINE, BM X2 TODAY. THORACTOMY INCISION IS CLOSED, HEALING. RIGHT CHEST TUBE DRESSING IS C/D/I. POSSIBLE D/C TO HOME WITH HOME HEALTH IN THE NEXT COUPLE OF DAYS. 500mL OF ALBUMIN GIVEN TODAY X1. Follow up: CONTINUE WITH POC.
--- NOTE | 2016-06-02 05:07 | NUR ---
Significant Event: PATIENT IS A/O X3 BUT MORE CONFUSED AT DISORIENTED TO PLACE THIS AM BUT REORIENTS. VSS. HR 60-70'S. SBP 110-120'S. AFEBRILE. 02 SATS IN MID 90'S ON RA. NO C/O PAIN. LUNGS CLEAR TO CLEAR/DIM THROUGHOUT. UP WITH 1 ASSIST WITH WALKER/GB. C/O LOOSE STOOLS. APPETITE DECREASED. NEEDS LOTS OF ENCOURAGEMENT TO EAT. VOID PER RESTROOM. RIGHT CHEST CT SITE DRESSING C/D/I. IV TO LEFT FOREARM SL. Follow up: CONTINUE TO MONITOR. POSSBILY HOME IN NEXT DAY OR TWO WITH HOME HEALTH.
[2016-06-02 07:29] LABS: ALBUMIN 4.5 gm/dL (3.5-5.0); ANION GAP 12.1 (10.0-19.0); CALCIUM 9.5 mg/dL (8.5-10.5); CHLORIDE 100 mMol/L (96-110); CO2 27 mMol/L (22-32); CREATININE 0.6 mg/dL (0.5-1.1); ESTIMATED GFR (MDRD EQUATION) > 60; POTASSIUM 4.1 mMol/L (3.7-5.1); SODIUM 135 mMol/L (135-145)
[2016-06-02 07:32] LABS: BLOOD UREA NITROGEN 18 mg/dL (6-24)
--- NOTE | 2016-06-02 15:00 | NUR ---
Talked with Sarah Elder APRN and she says patient will probably be ready for discharge tomorrow with [facility]. [facility] referral made to [facility] services in [place]. Several calls with [facility] and information faxed. Told her I anticipate patient will go home tomorrow and will fax final orders and discharge instructions on day of discharge. Will follow.
--- NOTE | 2016-06-02 16:44 | NUR ---
Significant Event: VSS ON ROOM AIR. PT. A/OX3 ALL DAY, FORGETFUL AT TIMES. AFTER 3rd ASSESSMENT PT. WOKE UP CONFUSED THINKING SHE WAS IN HER KITCHEN AT HOME, SEEING CRACKERS ON THE [place], BUT SAYING AT THE SAMETIME SHE WAS IN THE HOSPITAL, KNEW TIME, ALSO STATED THAT SHE WAS PUTING THINGS TOGETHER IN HER MIND THAT WE TALKED ABOUT THE OTHER DAY. RISPERDAL D/C'D TODAY. NO COMPLAINTS OF PAIN. RIGHT SIDED CT DRESSING IS C/D/I, THORACTOMY INCISION IS CLOSED/GLUED SHUT. PT. GETS UP SBA WITH BELT/WALKER. ALARMS ON AT ALL TIMES. POSSIBLE D/C TO HOME IN AM, CARE MANAGEMENT WORKING ON HOME HEALTH. Follow up: D/C TO HOME IN AM.
[2016-06-03 04:09] LABS: ALBUMIN 4.6 gm/dL (3.5-5.0); ANION GAP 13.6 (10.0-19.0); BLOOD UREA NITROGEN 18 mg/dL (6-24); CALCIUM 9.6 mg/dL (8.5-10.5); CHLORIDE 96 mMol/L (96-110); CO2 25 mMol/L (22-32); CREATININE 0.7 mg/dL (0.5-1.1); ESTIMATED GFR (MDRD EQUATION) > 60; PHOSPHORUS 2.4 mg/dL (2.5-4.9); POTASSIUM 3.6 mMol/L (3.7-5.1); SODIUM 131 mMol/L (135-145)
--- NOTE | 2016-06-03 04:45 | NUR ---
Significant Event: Patient is alert to self and time. Disoriented to place. Confused. Having visual hallucinations at times. VSS on room air. HRs in the 70s-90s. SBPs in the 120s-160s. Afebrile. Up with 1 assist, walker, and gait belt. Ambulated in [place] multiple times this shift. Patient has not slept at all. Continues to try to get out of bed/chair. Bed/chair alarm on at all times. Dressing to right side of chest intact. Voiding well. Left forearm IV, saline locked. [place] given x 1 at 2352 for restlessness. Patient is pleasant. Follow up: Possible dismissal to home today.
[2016-06-03] MEDS ORDERED: FEOSOL325 MG PO (10:52)
[2016-06-03] MEDS ORDERED: ATIVAN 0.5MG0.5 MG PO (10:53)
[2016-06-03] MEDS ORDERED: REMERON15 M2 PO (10:54)
[2016-06-03] MEDS ORDERED: MIRALAX17 GM PO (10:56)
[2016-06-03] MEDS ORDERED: TYLENOL325 MG PO (10:57)
--- NOTE | 2016-06-03 11:00 | NUR ---
Notified this a.m. by Sarah Elder APRN that patient may need skilled care and to check to see if [facility] in [place] would accept her. Told Sarah patient is doing well with therapy, so not sure if they will accept her or not. Sarah is concerned about her confusion and mental status not being quite as good as yesterday. Called and spoke with Kanika at [facility] and she says they will consider her. Faxed information to her. Updated Sarah. Notified by Sarah that when she discussed skilled care with , he says he thinks patient will do better at home. He feels her mental status will improve most at home, back in her home environment. He does want C services. Talked to Kanika and updated her. Talked to patient and . says he thinks she will be better at home in her normal routine. Told him if she doesn't do well she can be admitted to the [facility] from home and covered by medicare if within 30 days. He voices understanding. Told him [facility], [place] will be contacting them regarding initial visit and they thought they would see her this afternoon. Talked with his about a walker and he says their son has 4 walkers and they are borrowing one from him and will pick it up their way home. Called [facility] at [facility] office and Face to Face form and d/c instruction faxed. Patient will discharge home today with spouse and [facility] services.
--- NOTE | 2016-06-03 11:38 | NUR ---
Patient dismissed to home with . Patient and deny question or concern of dismissal and verbalize understanding of instructions. Thoracotomy incision remains well approximated, clean dry and intact and open to air. IV dc'd. Home with home health.
--- NOTE | 2016-06-08 10:59 | NUR ---
Post hospitalization follow up call made to pateint. Patient reports that she is doing well. Has no questions concerning her medications for follow up appointments. Reports that her hosptial stay went well.
== END 2016-06-03 11:35 | disposition disaster alternative care site (69) | DRG 163 ==
LOC: GNTU 05-17 06:20 → GPCU 05-17 06:20
PROVIDERS: ADMIT Thoracic Surgery (Cardiothoracic Vascular Surgery)
DX: C34.91 Malignant neoplasm of unspecified part of right bronchus or lung (principal); G92 Toxic encephalopathy; N17.9 Acute kidney failure, unspecified; R64 Cachexia; Z68.1 Body mass index [BMI] 19.9 or less, adult; E86.0 Dehydration; W19.XXXA Unspecified fall, initial encounter; F39 Unspecified mood [affective] disorder; R59.0 Localized enlarged lymph nodes; K21.9 Gastro-esophageal reflux disease without esophagitis; I10 Essential (primary) hypertension
CPT/HCPCS: A9577; G0009; G0237; G0424; J0131; J0885; J1100; J1630; J1644; J1885; J2001; J2250; J2270; J2405; J3010; J3370; J7030; J7040; J7050; J7120; P9045